=== PATIENT | female | born 1960 | race Caucasian/White ===

== ENCOUNTER 2024-03-29 20:27 | Emergency (ER) | payer BC, SELFPAY ==
[2024-03-29 20:32] VITALS: BP 132/69
--- NOTE | 2024-03-29 22:59 | ED.GENMED ---
History of Present Illness
General
Chief Complaint: Back Pain
Source: patient
Exam Limitations: none
Time Seen by Provider: 03/29/24 22:37
Nursing documentation reviewed up to this point in time: agreed with
History of Present Illness
History of Present Illness:
Patient to ED with complaint of right lower back pain. States she was carrying groceries and the next day pain began. Symptoms started 3 weeks ago. No radiaton of pain, no weakness in extremities, no bowel or bladder symptoms. Pain worse with
movement. Evalutated by PCP and placed on flexeril without improvement. Brought to ED by spouse for eval.
Past History
Past History
ED Past Medical History: Hypothyroidism, Other (Bronchiolitis) and Other (Recent hospitalization for COVID pneumonia)
ED Past Surgical History: Cholecystectomy
Social History
Tobacco: Non-smoker
Drug: None
Family History
Family History: Other (Breast cancer, atrial fibrillation)
Review of Systems
Review of Systems
Allergies reviewed?: Yes
All Other Systems: ROS reviewed and negative except as documented in HPI and ROS
Constitutional: Reports no symptoms
EENT: Reports no symptoms
Respiratory: Reports no symptoms
Cardiac: Reports no symptoms
ABD/GI: Reports no symptoms
: Reports no symptoms
Musculoskeletal: Reports back pain (right low back pain)
Skin: Reports no symptoms
Neurological: Reports no symptoms
Psychiatric: Reports no symptoms
Phy Exam
General Physical Exam
General Presentation: well appearing and mild distress
General age: appears stated age
General Skin: warm and dry
General Habitus: normal
General Mental: alert
General Hydration: appears well hydrated
Gastrointestinal Exam
Gastrointestinal Exam: non tender and soft
Reflexes
Reflexes: +3: Left patellar and +3: Right patellar
Musculoskeletal Exam
Musculoskeletal Exam: neuro vasc intact
Skin Exam
Skin Exam: normal color, warm/dry and no rash
Psychiatric Exam
Psychiatric Exam: normal mood/affect
Course
Orders/Labs/Results
Orders:
Orders
03/29/24 22:53
Hydrocodone 5/APAP 325 [[place] 5/325] 1 tablet PO NOW STA
Lumbar Spine Complete, 4 View [CR Lumbar Spine Comp Min 4 Vw*] Urgent
Comment:
Reason For Exam: pain
Vital Signs
Initial and Last Documented VS:
Initial Vital Signs
Temp Pulse Resp BP Pulse Ox
97.8 F 70 16 132/69 100
03/29/24 20:32 03/29/24 20:32 03/29/24 20:32 03/29/24 20:32 03/29/24 20:32
Last Documented Vital Signs
Temp Pulse Resp BP Pulse Ox
97.8 F 70 16 132/69 100
03/29/24 20:32 03/29/24 20:32 03/29/24 20:32 03/29/24 20:32 03/29/24 20:32
*Critical Care Note
Total Time (30-74mins, 75-104mins- exclusive of procedures): Not Applicable
ED Attending Note
-
Portions of this chart may have been created with voice recognition software.� Occasional wrong word or��sound alike� substitutions may have occurred due to the inherent limitations of voice recognition software.
Discharge Plan
Departure
Patient Disposition: Home (Routine Discharge)
Date of Disposition: 03/29/24
Time of Disposition: 23:35
Patient with high blood pressure during this ER visit?: No
Condition: Good
Covid-19: Not Applicable
Discharge Problem:
Lumbar strain
Instructions: Low Back Pain (DC)
Prescriptions:
New
oxycodone 5 mg capsule
5 mg PO Q4H PRN (Reason: Pain) Qty: 14 0RF
No Action
levothyroxine 112 MCG tablet
112 mcg PO DAILY
paroxetine HCl [Paxil CR] 25 MG tablet extended release 24 hr
25 mg PO DAILY
multivitamin with folic acid [Tab-A-Tushar] 1 TABLET tablet
1 tab PO DAILY
benzonatate 100 MG capsule
100 mg PO TID@0800,1200,2000 Qty: 18 0RF
hydroxychloroquine 200 MG tablet
200 mg PO BID Qty: 4 0RF
rivaroxaban [Xarelto] 10 MG tablet
10 mg PO DAILY Qty: 30 0RF
hydroxychloroquine 200 MG tablet
200 mg PO BID Qty: 4 0RF
rivaroxaban [Xarelto] 10 MG tablet
10 mg PO DAILY Qty: 30 0RF
Activity Restrictions/Additional Instructions:
Follow up with your family doctor on monday.
Interventions
Interventions:
*Risk Screen - Suicide Last Done: 03/29/24 20:35
*Neglect/Abuse Screening Last Done: 03/29/24 20:35
ED- Fall Risk Assessment Last Done: 03/29/24 23:13
*Nursing Disposition Last Done: 03/29/24 23:50
ED-Musculoskeletal Assessment Last Done: 03/29/24 23:13
Discharge Date and Time
Discharge Date/Time: 03/29/24 23:51
Print Language: SAMI
Musculoskeletal Injury Exam
Musculoskeletal Injury Exam
Right Lower Back:
Pain with Movement?: Moderate
Tender to palpation?: Moderate
Soft tissue swelling?: None
External deformity and angulation?: None
Joint effusion?: None
Contusion?: None
Hematoma-local bleeding into tissue?: None
Strain- Sprain- Tear (Connective tissue injury)?: Moderate
Crepitus with movement?: No
Joint instability?: No
Malalignment/deformity?: No
Range of motion: Limited
Distal skin color and temperature: normal-warm & good color
Capillary Refill: normal
Normal distal neurovascular exam?: Yes
[2024-03-29] MEDS: NORCO 5/325 1 TABLET PO (23:08)
== END 2024-03-29 23:51 | disposition home or self-care (01) ==
LOC: EMR 20:27
PROVIDERS: EMERGENCY PHYSICIAN Emergency Medicine; FAMILY PHYSICIAN Family Medicine
DX: S39.012A Strain of muscle, fascia and tendon of lower back, initial encounter (principal); X58.XXXA Exposure to other specified factors, initial encounter; E03.9 Hypothyroidism, unspecified; Z90.49 Acquired absence of other specified parts of digestive tract
CPT/HCPCS: 99283; 72110

== ENCOUNTER → 2024-08-19 11:14 | Outpatient (REF) | payer BC, SELFPAY ==
[2024-08-19 12:08] LABS: % Basophils 0.6 % (0-2); % Eosinophils 0.6 % (0-6); % Immature Granulocytes 1.7 % (0-0.5); % Lymphocytes 37.3 % (20.5-51.1); % Neutrophils 54.8 % (42.2-75.2); Absolute Basophils 0.1 10^3/uL (0-0.2); Absolute Eosinophils 0.1 10^3/uL (0-0.7); Absolute Immature Granulocytes 0.2 10^3/uL (0-0.05); Absolute Lymphocytes 5.3 10^3/uL (1.2-3.4); Absolute Monocytes 0.7 10^3/uL (0.1-0.6); Absolute Neutrophils 7.8 10^3/uL (1.4-6.5); Hematocrit 45.7 % (37.0-47.0); Mean Corp Hgb Conc. 32.8 g/dL (33.0-37.0); Mean Corpuscular Hgb 28.9 pg (27.0-31.0); Mean Corpuscular Volume 88.1 fL (81.0-99.0); Mean Platelet Volume 10.1 fL (7.4-10.4); Nucleated Red Blood Cells % 0 %; Platelet Count 331 10^3/uL (130-400); Red Blood Cell Count 5.19 10^6/uL (4.20-5.40); Red Cell Dist. Width 13.5 % (11.5-14.5); White Blood Cell Count 14.3 10^3/uL (4.8-10.8)
== END ==
LOC: RAD 11:14
PROVIDERS: ATTENDING PHYSICIAN Physician Assistant; FAMILY PHYSICIAN Family Medicine
DX: J40 Bronchitis, not specified as acute or chronic (principal)
CPT/HCPCS: 36415; 71046; 85025